=== PATIENT | male | born 1960 | race Caucasian/White ===

== ENCOUNTER 2017-11-16 17:55 | Inpatient (IN) ==
[2017-11-16] MEDS ORDERED: Naloxone 0.4 MG/ML INJ IVP PRN (22:31)
--- NOTE | 2017-11-16 22:39 | Internal Med History&Physical ---
Date of Encounter: 11/17/17 Time of Encounter: 22:37 Assessment and Plan (1) Acute exacerbation of chronic obstructive airways disease Current visit: Yes Status: Inactive Dyspnea due to an acute exacerbation of COPD. Patient is a history of COPD and is on 2 L nasal cannula home. As of today's visit he is requiring 3 L nasal cannula to maintain SPO2 greater than 92%. - Levaquin 500 mg IV piggyback daily - CBCD, CMP in AM - Tylenol 650 mg PO q 4-6 hr PRN pain or fever - Place patient on Xopenex -Prednisone 40 mg by mouth daily - Heparin 5000 U SQ BID -Send respiratory infection panel -Respiratory support per nasal cannula titrated to maintain greater than 92% (2) Paroxysmal atrial flutter Current visit: Yes Status: Inactive Presents today with paradoxical atrial flutter. Reports no prior history. I believe this is secondary to excessive bronchodilator use due to acute exacerbation of COPD. Upon my initial assessment the patient was atrial flutter with a rate in the 140s however he self converted to sinus rhythm rate of 90s. Continue to monitor (3) DVT prophylaxis Current visit: Yes Status: Acute Heprin 5000 units SC BID Internal Medicine - H&P: HPI Chief complaint: DYSPNEA Admitted From: Home Plans for Post Hospital Care: Home History of present illness: Mr. Price is a 57 year old male with a PMH of COPD presents today with dyspnea which began several weeks ago. At that time he had a CT scan that showed a 16 [id number] cavitary lesion in the left apex. His primary care provider diagnosed with bronchitis and sent home with a dose of steroids and Levaquin. He reports he has been taking the Levaquin since discharge and is not getting any better. He reports fever, chills, night sweats, aches, dyspnea and a nonproductive cough, palpitations and tachycardia. He denies any hemoptysis, or unilateral extremity swelling/pain. He has been using 2 L of oxygen at home, and reports having 2 increase the use of his bronchodilators due to shortness of breath. He has a half pack-a-day smoker and continues to smoke. Past Med Surg Social Fam HX - Past Medical History Medical history: COPD Psychiatric history: no psych history - Social History Smoking Status: Current every day smoker Smokeless Tobacco Status: No Alcohol use: rarely Drug use: none - Family History Mother Family Member Ethnicity: Non- Living Status: Age at : 79 Cause of : RI Hx Family Cardiac Disorders: Yes (CHF) Hx Family Respiratory Disorders: Yes (Emphysema) Father Family Member Ethnicity: Non- Living Status: Age at : 58 Cause of : Lung cancer Hx Family Cancer: Yes (Lung cancer with mets) - Additional Family History Additional family history: noncontributory Internal Medicine - H&P: Meds Albuterol Neb [AccuNeb] 3 ml IH Q4-6H PRN 11/16/17 [History] Albuterol Sulfate [Ventolin Hfa] 18 gm IH Q4-6H PRN 11/16/17 [History] Budesonide/Formoterol 160/4.5 [Symbicort 160/4.5] 2 puff IH BID 11/16/17 [ History] Multivit-Min/FA/Lycopen/Lutein [Adults 50+ Multivitamin Tablet] 1 each PO DAILY 11/17/17 [History] Tiotropium Br/Olodaterol HCl [Stiolto Respimat Inhal [place]] 2 puff IH DAILY [History] levoFLOXacin [Levofloxacin] 750 mg PO DAILY 11/17/17 [History] predniSONE [PredniSONE] 10 mg PO TIDWM 11/17/17 [History] 3 Allergy/AdvReac Type Severity Reaction Status Date / Time No Known Allergies Allergy Verified 11/17/17 09:31 All Systems PM: A 10-system review of systems was performed and is negative for pertinent findings except as documented above in the HPI. - Constitutional Constitutional: chills, fatigue, fever(s), lethargy, malaise, night sweats, weakness - Cardiovascular Cardiovascular ROS IM: as per HPI, dyspnea, dyspnea on exertion, irregular heart rhythm, orthopnea, palpitations, no chest pain, no edema, no lightheadedness, no syncope - Respiratory Respiratory: as per HPI, no hemoptysis - Gastrointestinal Gastrointestinal: no abdominal pain, no diarrhea, no hematemesis, no hematochezia, no melena, no nausea, no vomiting - Musculoskeletal Musculoskeletal ROS IM: no numbness, no tingling - Integumentary Integumentary IM: no rash, no unusual bruising - Neurological Neurological ROS: no confusion, no convulsions, no focal weakness, no numbness, no tingling, no tremor(s) - Hematologic/Lymphatic Hematologic/Lymphatic: no easy bruising - Constitutional Vitals: Temp Pulse Resp BP Pulse Ox 98 F 105 20 127/92 95 11/16/17 22:15 11/16/17 22:15 11/16/17 22:15 11/16/17 22:15 11/16/17 22:15 General appearance: Present: cooperative, mild distress, A&O X 3, answers questions appropriately - Head Head exam: Present: atraumatic, normocephalic - Eye Eye exam: Present: PERRL, conjuntiva pink, sclera anicteric Pupils: Present: PERRL - Neck Neck exam general surgery: Present: supple, trachea midline. Absent: lymphadenopathy - Respiratory Respiratory exam: Present: prolonged expiratory phase (shallow breaths), wheezes , tachypnea. Absent: chest wall tenderness - Cardiovascular Cardiovascular exam: Present: irregular rhythm, tachycardia. Absent: diastolic murmur, gallop, rubs, systolic murmur - GI/Abdominal GI/Abdominal exam: Present: normal bowel sounds, soft, no peritoneal signs. Absent: distended, tenderness - Extremities Exam Extremities exam: Present: normal capillary refill, normal inspection, warm, radial pulses palpable and symmetrical. Absent: calf tenderness, cyanotic, pedal edema, tenderness - Neurological Exam Neurological exam: Present: CN II-XII intact, oriented X3, no focal deficits. Absent: pronater drift, facial droop, speech deficit - Skin Skin exam: Present: dry, intact Internal Med - H&P Results - Labs CBC & Chem 7: 11/17/17 03:03 11/17/17 03:03 - Diagnostic Studies CT scan - chest Status: image reviewed by me Additional comments: No CT evidence pulmonary embolism. Severe emphysema. Left upper lobe cavitary lesion measuring up to 2.1 x 1.3 cm, unchanged since 11/04/2017. Comparison with prior studies would be helpful if available. Otherwise as recommended on the prior study, short-term follow-up in 3 months should be performed. Chest x-ray Status: image reviewed by me Additional comments: Emphysema and other pulmonary changes typical of sequela from smoking ; correlate with clinical history. Otherwise unremarkable chest.
[2017-11-16] MEDS ORDERED: Acetaminophen 325 MG TABLET PO PRN (23:00)
[2017-11-16] MEDS ORDERED: Levofloxacin 500 MG/100 ML 500 MG/100 ML BAG IVPB SCH (23:00)
[2017-11-17] MEDS ORDERED: *HR* LORazepam 0.5 MG TABLET PO PRN (00:19)
[2017-11-17 03:37] LABS: Adenovirus Not Detected (Not Detect); Bordetella Pertussis Not Detected (Not Detect); Chlamydophila pneumoniae Not Detected (Not Detect); Coronavirus 229E Not Detected (Not Detect); Coronavirus HKU1 Not Detected (Not Detect); Coronavirus NL63 Not Detected (Not Detect); Coronavirus OC43 Not Detected (Not Detect); Human Metapneumovirus Not Detected (Not Detect); Human Rhinovirus/Enterovirus Not Detected (Not Detect); Influenza A Subtype 2009 H1 Not Detected (Not Detect); Influenza A Untypeable Not Detected (Not Detect); Influenza B Not Detected (Not Detect); Mycoplasma pneumoniae Not Detected (Not Detect); Parainfluenza Virus 1 Not Detected (Not Detect); Parainfluenza Virus 2 Not Detected (Not Detect); Parainfluenza Virus 3 Not Detected (Not Detect); Parainfluenza Virus 4 Not Detected (Not Detect); Respiratory Syncytial Virus Not Detected (Not Detect)
[2017-11-17 03:48] LABS: Hematocrit 44.2 % (37.5-50.1); Hemoglobin 15.7 g/dL (12.9-16.9); Immature Granulocytes % 0.8 % (0-4); Lymphocytes # 0.6 K/mcL (0.6-4.6); Lymphocytes % 16.6 %; Mean Corpuscular HGB Conc 35.5 g/dL (31.6-35.5); Mean Corpuscular Hemoglobin 30.6 pg (28.0-33.3); Mean Corpuscular Volume 86.2 fL (83.0-100.0); Mean Platelet Volume 9.8 fL (9.4-12.4); Monocytes # 0.6 K/mcL (0.0-1.3); Monocytes % 15.5 %; Neutrophils # 2.4 K/mcL (1.6-8.9); Platelet Count 230 K/mcL (140-400); Red Blood Count 5.13 M/mcL (4.19-5.50); Red Cell Distribution Width 12.7 % (11.5-14.5); Segmented Neutrophils % 67.1 %
[2017-11-17 04:07] LABS: BUN/Creatinine Ratio 24 (6-26); Blood Urea Nitrogen 24 mg/dL (6-20); Calcium 8.8 mg/dL (8.6-10.3); Carbon Dioxide 24 mEq/L (23-29); Chloride 102 mEq/L (98-107); Glucose 161 mg/dL (70-105); Osmolality,Calculated 286 (280-300); Potassium 4.5 mEq/L (3.5-5.1); Sodium 134 mEq/L (136-145); eGFR For African Americans > 60 (> 60); eGFR For Non-African Americans > 60 (> 60)
[2017-11-17] MEDS: Levalbuterol Neb 1.25 MG/3 ML IH SCH ×4 (04:40→23:07)
[2017-11-17] MEDS: *HR* Heparin 5,000 UNIT/ML VIAL SQ SCH ×2 (07:12→20:06)
[2017-11-17] MEDS: predniSONE 20 MG TABLET PO SCH (09:10)
[2017-11-17] MEDS: Aspirin 81 MG TAB.CHEW PO SCH (09:10)
--- NOTE | 2017-11-17 11:14 | Internal Med Progress Note ---
Date of Encounter: 11/17/17 Time of Encounter: 11:11 - Assessment and plan (1) Sepsis Current Visit: Yes Status: Acute Assessment and plan: Acute on chronic hypoxic respiratory failure from acute COPD exacerbation due to Sepsis secondary to influenza A and pneumonia with left upper lobe cavitary lesion of the lung, consider possible anaerobe infection Stop Levaquin and start Unasyn Start Tamiflu, the patient developed symptoms 5 days ago but was getting better with Levaquin, symptoms got worse over the past 2 days, unclear of the timing of these combined infections Prednisone Xopenex, oxygen therapy, uses 2 L at home Qualifiers: Sepsis type: sepsis due to unspecified organism Qualified Code(s): A41.9 - Sepsis, unspecified organism (2) Influenza A Current Visit: Yes Status: Acute Assessment and plan: The patient deferred to start Tamiflu, the option of not starting this medication was discussed as the patient's symptoms possibly started either 2 or 5 days ago (3) Cavitary lesion of lung Current Visit: Yes Status: Acute Assessment and plan: CT scan of the chest showed:evere emphysema. Left upper lobe cavitary lesion measuring up to 2.1 x 1.3 cm, unchanged since 11/04/2017. Comparison with prior studies would be helpful if available. Needs to follow up with pulmonary service within the next 4-6 week to assess resolution of the cavitary lesion, less likely neoplastic or from tuberculosis (4) Tobacco abuse Current Visit: Yes Status: Acute (5) Leukopenia Current Visit: Yes Status: Acute Qualifiers: Neutropenia type: unspecified Qualified Code(s): D70.9 - Neutropenia, unspecified (6) Hyponatremia Current Visit: Yes Status: Acute (7) Atrial flutter Current Visit: Yes Status: Acute Assessment and plan: Likely developed by sepsis and breathing treatments The patient was given Cardizem but is now in sinus rhythm, tachycardic at times Qualifiers: Atrial flutter type: unspecified Qualified Code(s): I48.92 - Unspecified atrial flutter - Subjective Interval history: Very sweaty, short of breath, very tremulous, denies any chest pain, no abdominal pain or dysuria. No fevers overnight - Constitutional Vitals: Temp Pulse Resp BP Pulse Ox 98.1 F 90 16 124/80 97 11/17/17 10:57 11/17/17 10:57 11/17/17 10:57 11/17/17 10:57 11/17/17 10:57 General appearance: Present: cooperative, mild distress, A&O X 3, answers questions appropriately - Head Head exam: Present: atraumatic, normocephalic - Eye Eye exam: Present: PERRL, conjuntiva pink, sclera anicteric Pupils: Present: PERRL - Neck Neck exam general surgery: Present: supple, trachea midline. Absent: lymphadenopathy - Respiratory Respiratory exam: Present: decreased breath sounds, CTAB, wheezes. Absent: accessory muscle use, rales, rhonchi Additional comments: Minimal wheezing at bases - Cardiovascular Cardiovascular exam: Present: RRR, +S1, +S2. Absent: diastolic murmur, gallop, rubs, systolic murmur - GI/Abdominal GI/Abdominal exam: Present: normal bowel sounds, soft, no peritoneal signs. Absent: distended, tenderness - Extremities Exam Extremities exam: Present: warm, radial pulses palpable and symmetrical. Absent : calf tenderness, cyanotic, pedal edema - Neurological Exam Neurological exam: Present: CN II-XII intact, oriented X3, no focal deficits. Absent: pronater drift, facial droop, speech deficit Additional comments: Essential tremors - Skin Skin exam: Present: dry, intact Internal Medicine: Result - Labs CBC & Chem 7: 11/17/17 03:03 11/17/17 03:03 Labs: Short CBC 11/17/17 Range/Units 03:03 WBC 3.6 L (4.3-11.1) K/mcL Hgb 15.7 (12.9-16.9) g/dL Hct 44.2 (37.5-50.1) % Plt Count 230 (140-400) K/mcL Neutrophils # 2.4 (1.6-8.9) K/mcL BMP 11/17/17 03:03 Sodium 134 L Potassium 4.5 Chloride 102 Carbon Dioxide 24 BUN 24 H Creatinine 1.00 Glucose 161 H Calcium 8.8 Consult Discharge Plan - Plan Referrals: Hung Londono MD [Primary Care Provider] -
[2017-11-17] MEDS: Ampicillin/Sulbactam 1,500 MG in 0.9 % Sodium Chloride Mini Bag 100 ML IVPB SCH ×3 (12:41→20:05)
[2017-11-17] MEDS: Ipratropium Neb 0.5 MG NEBULIZER IH SCH (23:07)
[2017-11-18] MEDS: Ampicillin/Sulbactam 1,500 MG in 0.9 % Sodium Chloride Mini Bag 100 ML IVPB SCH ×4 (00:54→17:48)
[2017-11-18] MEDS: Ipratropium Neb 0.5 MG NEBULIZER IH SCH ×4 (03:52→22:56)
[2017-11-18] MEDS: Levalbuterol Neb 1.25 MG/3 ML IH SCH ×4 (03:52→22:56)
[2017-11-18] MEDS: *HR* Heparin 5,000 UNIT/ML VIAL SQ SCH (06:20)
[2017-11-18 06:30] LABS: Hematocrit 40.9 % (37.5-50.1); Mean Corpuscular Hemoglobin 29.4 pg (28.0-33.3); Mean Corpuscular Volume 86.7 fL (83.0-100.0); Platelet Count 229 K/mcL (140-400); Red Blood Count 4.72 M/mcL (4.19-5.50); Red Cell Distribution Width 12.7 % (11.5-14.5)
[2017-11-18 06:34] LABS: Hemoglobin 13.9 g/dL (12.9-16.9)
[2017-11-18 06:35] LABS: BUN/Creatinine Ratio 27 (6-26); Blood Urea Nitrogen 23 mg/dL (6-20); Calcium 8.3 mg/dL (8.6-10.3); Carbon Dioxide 29 mEq/L (23-29); Chloride 103 mEq/L (98-107); Glucose 99 mg/dL (70-105); Osmolality,Calculated 286 (280-300); Potassium 3.8 mEq/L (3.5-5.1); Sodium 136 mEq/L (136-145); eGFR For African Americans > 60 (> 60); eGFR For Non-African Americans > 60 (> 60)
[2017-11-18] MEDS: Aspirin 81 MG TAB.CHEW PO SCH (09:23)
[2017-11-18] MEDS: predniSONE 20 MG TABLET PO SCH (09:23)
--- NOTE | 2017-11-18 10:45 | Internal Med Progress Note ---
<Ifeanyi Penny - Last Filed: 11/18/17 13:24> Date of Encounter: 11/18/17 Time of Encounter: 10:43 - Assessment and plan (1) Sepsis Current Visit: Yes Status: Acute Assessment and plan: Acute on chronic hypoxic respiratory failure from acute COPD exacerbation due to Sepsis secondary to influenza A and pneumonia with left upper lobe cavitary lesion of the lung, consider possible anaerobe infection. Concerns for TB. Influenza A positive. - Unasyn day 2 - ct tamiflu - bronchoscope ordered, pulm consult - ct prednisone - continue Xopenex, oxygen therapy, uses 2 L at home Qualifiers: Sepsis type: sepsis due to unspecified organism Qualified Code(s): A41.9 - Sepsis, unspecified organism (2) Influenza A Current Visit: Yes Status: Acute Assessment and plan: The patient deferred to start Tamiflu, the option of not starting this medication was discussed as the patient's symptoms possibly started either 2 or 5 days ago (3) Cavitary lesion of lung Current Visit: Yes Status: Acute Assessment and plan: CT scan of the chest showed:severe emphysema. Left upper lobe cavitary lesion measuring up to 2.1 x 1.3 cm, unchanged since 11/04/2017. Comparison with prior studies would be helpful if available. Needs to follow up with pulmonary service within the next 4-6 week to assess resolution of the cavitary lesion, less likely neoplastic or from tuberculosis (4) Tobacco abuse Current Visit: Yes Status: Acute Assessment and plan: current everyday smoker. educated patient on smoking cessation (5) Leukopenia Current Visit: Yes Status: Acute Qualifiers: Neutropenia type: unspecified Qualified Code(s): D70.9 - Neutropenia, unspecified (6) Hyponatremia Current Visit: Yes Status: Acute (7) Atrial flutter Current Visit: Yes Status: Acute Assessment and plan: Likely developed by sepsis and breathing treatments The patient was given Cardizem but is now in sinus rhythm, tachycardic at times Qualifiers: Atrial flutter type: unspecified Qualified Code(s): I48.92 - Unspecified atrial flutter - Subjective Interval history: Mr Price is a 57 yo M w/ PMHx of COPD, current smoker, recently treated by her PCP for bronchitis with levaquin presented to ED with worsening SOB. Patient reports that he still has difficulty breathing but is improving. patient denies fever, chills, n, v, cp. - Constitutional Vitals: Temp Pulse Resp BP Pulse Ox 97.7 F 74 16 150/98 96 11/18/17 07:19 11/18/17 07:19 11/18/17 10:15 11/18/17 07:19 11/18/17 10:15 General appearance: Present: cooperative, mild distress, A&O X 3, answers questions appropriately - Respiratory Respiratory exam: Present: prolonged expiratory phase, respiratory distress, wheezes - Cardiovascular Cardiovascular exam: Present: RRR, +S1, +S2. Absent: diastolic murmur, gallop, rubs, systolic murmur - GI/Abdominal GI/Abdominal exam: Present: normal bowel sounds, soft, no peritoneal signs. Absent: distended, tenderness - Psychiatric Psychiatric exam: Present: normal affect, normal mood Internal Medicine: Result - Labs CBC & Chem 7: 11/18/17 05:17 11/18/17 05:17 Labs: Short CBC 11/18/17 Range/Units 05:17 WBC 4.8 (4.3-11.1) K/mcL Hgb 13.9 D (12.9-16.9) g/dL Hct 40.9 (37.5-50.1) % Plt Count 229 (140-400) K/mcL BMP 11/18/17 05:17 Sodium 136 Potassium 3.8 Chloride 103 Carbon Dioxide 29 BUN 23 H Creatinine 0.86 Glucose 99 Calcium 8.3 L - Impressions Impressions Echocardiogram 11/17/17 13:47 Impressions: LVEF 60%. Mild left ventricular diastolic dysfunction. Atypical septal motion of unclear etiology. Normal right ventricular structure and function. Mild tricuspid regurgitation. No pulmonary hypertension. Left Ventricular Wall Motion: Rest Echo Findings All wall segments showed normal motion. Findings: Study Quality * Technically adequate exam. ECG Findings * Normal sinus rhythm. Left Ventricle * LVEF 60%. * Normal LV chamber size, wall thickness and function. * Mild left ventricular diastolic dysfunction. * Atypical septal motion of unclear etiology. Right Ventricle * Normal right ventricular structure and function. Left Atrium * Normal left atrial size. Right Atrium * Normal right atrial size. Aortic Valve * No aortic regurgitation. * Aortic valve not well visualized. * No aortic stenosis. Mitral Valve * No mitral regurgitation. * Normal mitral valve structure. * No mitral stenosis. Tricuspid Valve * Normal tricuspid valve structure. * Mild tricuspid regurgitation. * Estimated RA pressure is 3 mmHg. * Estimated RVSP is 32 mmHg. * No pulmonary hypertension. Pulmonic Valve * Pulmonic valve is not well visualized. * No pulmonic stenosis. * No pulmonic regurgitation. Pulmonary Artery * Pulmonary artery not well visualized. Aorta * Normally sized aortic root. * Ascending aorta is not well visualized. Pericardium * There is no pericardial effusion present. Interatrial Septum * No evidence of PFO by color Doppler. IVC * Normal IVC dimensions and inspiratory collapse. Consult Discharge Plan - Plan Referrals: Hung Londono MD [Primary Care Provider] - <Moy Dunn - Last Filed: 11/18/17 18:39> Date of Encounter: 11/18/17 - Assessment and plan (1) Acute respiratory failure with hypoxia Current Visit: Yes Status: Acute (2) Influenza A Current Visit: Yes Status: Acute (3) Sepsis Current Visit: Yes Status: Acute Qualifiers: Sepsis type: sepsis due to unspecified organism Qualified Code(s): A41.9 - Sepsis, unspecified organism (4) Atrial fibrillation Current Visit: Yes Status: Acute Assessment and plan: Starting anticoagulation and metoprolol. Qualifiers: Atrial fibrillation type: paroxysmal Qualified Code(s): I48.0 - Paroxysmal atrial fibrillation (5) Tobacco abuse Current Visit: Yes Status: Acute (6) Cavitary lesion of lung Current Visit: Yes Status: Acute (7) Hyponatremia Current Visit: Yes Status: Acute - Constitutional Vitals: Temp Pulse Resp BP Pulse Ox 97.8 F 152 16 137/111 98 11/18/17 14:57 11/18/17 14:57 11/18/17 16:27 11/18/17 14:57 11/18/17 16:27 Internal Medicine: Result - Labs CBC & Chem 7: 11/18/17 05:17 11/18/17 05:17 Labs: Short CBC 11/18/17 Range/Units 05:17 WBC 4.8 (4.3-11.1) K/mcL Hgb 13.9 D (12.9-16.9) g/dL Hct 40.9 (37.5-50.1) % Plt Count 229 (140-400) K/mcL BMP 11/18/17 05:17 Sodium 136 Potassium 3.8 Chloride 103 Carbon Dioxide 29 BUN 23 H Creatinine 0.86 Glucose 99 Calcium 8.3 L - Impressions Impressions Echocardiogram 11/17/17 13:47 Impressions: LVEF 60%. Mild left ventricular diastolic dysfunction. Atypical septal motion of unclear etiology. Normal right ventricular structure and function. Mild tricuspid regurgitation. No pulmonary hypertension. Left Ventricular Wall Motion: Rest Echo Findings All wall segments showed normal motion. Findings: Study Quality * Technically adequate exam. ECG Findings * Normal sinus rhythm. Left Ventricle * LVEF 60%. * Normal LV chamber size, wall thickness and function. * Mild left ventricular diastolic dysfunction. * Atypical septal motion of unclear etiology. Right Ventricle * Normal right ventricular structure and function. Left Atrium * Normal left atrial size. Right Atrium * Normal right atrial size. Aortic Valve * No aortic regurgitation. * Aortic valve not well visualized. * No aortic stenosis. Mitral Valve * No mitral regurgitation. * Normal mitral valve structure. * No mitral stenosis. Tricuspid Valve * Normal tricuspid valve structure. * Mild tricuspid regurgitation. * Estimated RA pressure is 3 mmHg. * Estimated RVSP is 32 mmHg. * No pulmonary hypertension. Pulmonic Valve * Pulmonic valve is not well visualized. * No pulmonic stenosis. * No pulmonic regurgitation. Pulmonary Artery * Pulmonary artery not well visualized. Aorta * Normally sized aortic root. * Ascending aorta is not well visualized. Pericardium * There is no pericardial effusion present. Interatrial Septum * No evidence of PFO by color Doppler. IVC * Normal IVC dimensions and inspiratory collapse. - Attending Attestation I examined this patient and my medical decision-making was reviewed with the Resident Physician on 11/18/17. I agree with the documented findings, disposition and treatment plan as described except to the extent set forth below. Mr Price is currently admitted for acute influenza and a fib. He remains moderate to high risk due to potential for worsening clinical status. Mr Price is feeling somewhat better today. He remains dyspneic and weak. His sister is at bedside and updated. He has had 2 episodes of rapid a fib today and spontaneously converted to NSR. He does not really feel it. Exam Alert. Comfortable Mucus membranes dry Heart reg Lungs with scattered rhonchi Abd soft I/P 1. Parox a fib 2. COPD 3. Influenza Further diagnoses and plan as above.
[2017-11-18] MEDS: *HR* Enoxaparin 80 MG/0.8 ML SYRINGE SQ SCH (17:49)
[2017-11-18] MEDS: Budesonide/Formoterol 160/4.5 MDI IH SCH (23:01)
[2017-11-19] MEDS: Ampicillin/Sulbactam 1,500 MG in 0.9 % Sodium Chloride Mini Bag 100 ML IVPB SCH ×4 (00:31→18:24)
[2017-11-19] MEDS: Ipratropium Neb 0.5 MG NEBULIZER IH SCH ×4 (04:27→22:50)
[2017-11-19] MEDS: Levalbuterol Neb 1.25 MG/3 ML IH SCH ×4 (04:27→22:50)
[2017-11-19 05:38] LABS: Basophils % 0.2 %; Hemoglobin 14.1 g/dL (12.9-16.9); Immature Granulocytes % 0.4 % (0-4); Lymphocytes # 2.1 K/mcL (0.6-4.6); Lymphocytes % 41.5 %; Mean Corpuscular HGB Conc 34.4 g/dL (31.6-35.5); Mean Corpuscular Volume 87.2 fL (83.0-100.0); Mean Platelet Volume 10.8 fL (9.4-12.4); Monocytes # 0.6 K/mcL (0.0-1.3); Monocytes % 12.6 %; Neutrophils # 2.3 K/mcL (1.6-8.9); Platelet Count 179 K/mcL (140-400); Red Cell Distribution Width 12.6 % (11.5-14.5); Segmented Neutrophils % 45.3 %
[2017-11-19 05:51] LABS: BUN/Creatinine Ratio 25 (6-26); Blood Urea Nitrogen 20 mg/dL (6-20); Calcium 8.4 mg/dL (8.6-10.3); Carbon Dioxide 31 mEq/L (23-29); Chloride 102 mEq/L (98-107); Glucose 91 mg/dL (70-105); Osmolality,Calculated 282 (280-300); Sodium 135 mEq/L (136-145); eGFR For African Americans > 60 (> 60); eGFR For Non-African Americans > 60 (> 60)
[2017-11-19] MEDS: *HR* Enoxaparin 80 MG/0.8 ML SYRINGE SQ SCH (05:56)
[2017-11-19 06:04] LABS: Platelet Estimate Normal (Normal); Reactive Lymphocytes Present (Not Present); Toxic Granulation Present (Not Present); Toxic Vacuolation Present (Not Present)
[2017-11-19 06:05] LABS: Acanthocytes 1+ (Not Present)
[2017-11-19] MEDS: predniSONE 20 MG TABLET PO SCH (09:19)
[2017-11-19] MEDS: Aspirin 81 MG TAB.CHEW PO SCH (09:19)
[2017-11-19] MEDS: Budesonide/Formoterol 160/4.5 MDI IH SCH ×2 (10:11→22:49)
--- NOTE | 2017-11-19 10:37 | Internal Med Progress Note ---
Date of Encounter: 11/19/17 Time of Encounter: 10:35 - Assessment and plan (1) Sepsis Current Visit: Yes Status: Acute Assessment and plan: Acute on chronic hypoxic respiratory failure from acute COPD exacerbation due to Sepsis secondary to influenza A and pneumonia with left upper lobe cavitary lesion of the lung, consider possible anaerobe infection. Concerns for TB. Influenza A positive. - Unasyn day 2 - ct tamiflu - bronchoscope ordered, pulm consult - ct prednisone - continue Xopenex, oxygen therapy, uses 2 L at home Qualifiers: Sepsis type: sepsis due to unspecified organism Qualified Code(s): A41.9 - Sepsis, unspecified organism (2) Influenza A Current Visit: Yes Status: Acute (3) Cavitary lesion of lung Current Visit: Yes Status: Acute (4) Tobacco abuse Current Visit: Yes Status: Acute (5) Leukopenia Current Visit: Yes Status: Acute Qualifiers: Neutropenia type: unspecified Qualified Code(s): D70.9 - Neutropenia, unspecified (6) Hyponatremia Current Visit: Yes Status: Acute (7) Atrial flutter Current Visit: Yes Status: Acute Qualifiers: Atrial flutter type: unspecified Qualified Code(s): I48.92 - Unspecified atrial flutter - Subjective Interval history: Mr Price is a 57 yo M w/ PMHx of COPD, current smoker, recently treated by her PCP for bronchitis with levaquin presented to ED with worsening SOB. Patient reports that his breathing has improved greatly since yesterday. patient denies fever, chills, n, v, cp. - Constitutional Vitals: Temp Pulse Resp BP Pulse Ox 97.7 F 62 18 127/76 95 11/19/17 07:35 11/19/17 07:35 11/19/17 10:12 11/19/17 07:35 11/19/17 10:12 General appearance: Present: cooperative, mild distress, A&O X 3, answers questions appropriately - Respiratory Respiratory exam: Present: prolonged expiratory phase, wheezes (expiratory, improved). Absent: decreased breath sounds, CTAB, rales, respiratory distress, stridor - Cardiovascular Cardiovascular exam: Present: RRR - GI/Abdominal GI/Abdominal exam: Present: normal bowel sounds, soft, no peritoneal signs. Absent: distended, tenderness Internal Medicine: Result - Labs CBC & Chem 7: 11/19/17 05:03 11/19/17 05:03 Labs: Short CBC 11/19/17 Range/Units 05:03 WBC 5.0 (4.3-11.1) K/mcL Hgb 14.1 (12.9-16.9) g/dL Hct 41.0 (37.5-50.1) % Plt Count 179 (140-400) K/mcL Neutrophils # 2.3 (1.6-8.9) K/mcL BMP 11/19/17 05:03 Sodium 135 L Potassium 4.0 Chloride 102 Carbon Dioxide 31 H BUN 20 Creatinine 0.80 Glucose 91 Calcium 8.4 L Consult Discharge Plan - Plan Referrals: Hung Londono MD [Primary Care Provider] -
--- NOTE | 2017-11-19 10:42 | Discharge Summary ---
Date of Encounter: 11/19/17 Time of Encounter: 10:40 - Discharge Diagnosis (1) Sepsis Priority: Secondary Status: Acute Qualifiers: Sepsis type: sepsis due to unspecified organism Qualified Code(s): A41.9 - Sepsis, unspecified organism (2) Influenza A Priority: Primary Status: Acute (3) Cavitary lesion of lung Priority: Secondary Status: Acute (4) Tobacco abuse Priority: Secondary Status: Acute (5) Leukopenia Priority: Secondary Status: Acute Qualifiers: Neutropenia type: unspecified Qualified Code(s): D70.9 - Neutropenia, unspecified (6) Hyponatremia Priority: Secondary Status: Acute (7) Atrial flutter Priority: Secondary Status: Acute Qualifiers: Atrial flutter type: unspecified Qualified Code(s): I48.92 - Unspecified atrial flutter - Discharge Medications Home Medications: Albuterol Neb [AccuNeb] 3 ml IH Q4-6H PRN 11/16/17 [History] Albuterol Sulfate [Ventolin Hfa] 18 gm IH Q4-6H PRN 11/16/17 [History] Budesonide/Formoterol 160/4.5 [Symbicort 160/4.5] 2 puff IH BID 11/16/17 [ History] Multivit-Min/FA/Lycopen/Lutein [Adults 50+ Multivitamin Tablet] 1 each PO DAILY 11/17/17 [History] Tiotropium Br/Olodaterol HCl [Stiolto Respimat Inhal [place]] 2 puff IH DAILY [History] levoFLOXacin [Levofloxacin] 750 mg PO DAILY 11/17/17 [History] predniSONE [PredniSONE] 10 mg PO TIDWM 11/17/17 [History] Allergies/Adverse Reactions: 3 Allergy/AdvReac Type Severity Reaction Status Date / Time No Known Allergies Allergy Verified 11/17/17 09:31 Procedures/tests Complete & Pending: Procedures Performed prior 72 hours Category Date Time Status EV echocardiogram Routine Y 11/17/17 13:47 Completed Date of admission: 11/16/17 22:31 Primary care physician: Hung Londono MD Consults: 11/18/17 10:48 Consult to Pulmonology [CONS] Routine Consulting Provider: [facility] [place] Reason for Consult: newly found cavitory lesion in Left upper lobe Call Completed: Yes 11/19/17 10:33 Consult to Cardiology [CONS] Routine Consulting Provider: Cardiology [place] Comment: Reason for Consult: new afib Call Completed: Yes - Discharge Instructions Follow Up With: Hung Londono MD [Primary Care Provider] - Hospital course: Mr. Price is a 57 year old male - Time Spent with Patient Total time spent providing and/or coordinating discharge services: - Constitutional Vitals: Temp Pulse Resp BP Pulse Ox 97.7 F 62 18 127/76 95 11/19/17 07:35 11/19/17 07:35 11/19/17 10:12 11/19/17 07:35 11/19/17 10:12 General appearance: Present: cooperative, mild distress, A&O X 3, answers questions appropriately
--- NOTE | 2017-11-19 11:00 | Internal Med Progress Note ---
<Ifeanyi Penny - Last Filed: 11/19/17 13:37> Date of Encounter: 11/19/17 Time of Encounter: 10:56 - Assessment and plan (1) Sepsis Current Visit: Yes Status: Acute Assessment and plan: Acute on chronic hypoxic respiratory failure from acute COPD exacerbation due to Sepsis secondary to influenza A and pneumonia with left upper lobe cavitary lesion of the lung, consider possible anaerobe infection. Influenza A positive. Pulm on board - TB workup - pending - Unasyn day 3 - ct tamiflu - Patient was walked, HR, BP, and sat O2 dropped. - d/C prednisone per [facility]ad[facility]al[facility] - continue Xopenex, oxygen therapy, uses 2 L at home Qualifiers: Sepsis type: sepsis due to unspecified organism Qualified Code(s): A41.9 - Sepsis, unspecified organism (2) Influenza A Current Visit: Yes Status: Acute Assessment and plan: The patient deferred to start Tamiflu, the option of not starting this medication was discussed as the patient's symptoms possibly started either 2 or 5 days ago (3) Cavitary lesion of lung Current Visit: Yes Status: Suspected Assessment and plan: CT scan of the chest showed:severe emphysema. Left upper lobe cavitary lesion measuring up to 2.1 x 1.3 cm, unchanged since 11/04/2017. Comparison with prior studies would be helpful if available. Needs to follow up with pulmonary service within the next 4-6 week to assess resolution of the cavitary lesion, less likely neoplastic or from tuberculosis - F/U CT scan (4) Tobacco abuse Current Visit: Yes Status: Chronic Assessment and plan: current everyday smoker. educated patient on smoking cessation (5) Leukopenia Current Visit: Yes Status: Acute Assessment and plan: has resolved. Qualifiers: Neutropenia type: unspecified Qualified Code(s): D70.9 - Neutropenia, unspecified (6) Hyponatremia Current Visit: Yes Status: Acute Assessment and plan: currently stable (7) Atrial flutter Current Visit: Yes Status: Acute Assessment and plan: Likely developed by sepsis and breathing treatments. new afib. - cards consulted; per their recommendations patient was started on Lovenox and Cardizem Qualifiers: Atrial flutter type: unspecified Qualified Code(s): I48.92 - Unspecified atrial flutter - Subjective Interval history: Mr Price is a 57 yo M w/ PMHx of COPD, current smoker, recently treated by her PCP for bronchitis with levaquin presented to ED with worsening SOB. Also found to have afib. Patient reports that his breathing has drastically improved.. patient denies fever, chills, n, v, cp. - Constitutional Vitals: Temp Pulse Resp BP Pulse Ox 97.7 F 62 18 127/76 95 11/19/17 07:35 11/19/17 07:35 11/19/17 10:12 11/19/17 07:35 11/19/17 10:12 General appearance: Present: cooperative, mild distress, A&O X 3, answers questions appropriately - Respiratory Respiratory exam: Present: CTAB. Absent: accessory muscle use, rales, rhonchi, wheezes - Cardiovascular Cardiovascular exam: Present: RRR, +S1, +S2. Absent: diastolic murmur, gallop, rubs, systolic murmur - GI/Abdominal GI/Abdominal exam: Present: normal bowel sounds, soft, no peritoneal signs. Absent: distended, tenderness Internal Medicine: Result - Labs CBC & Chem 7: 11/19/17 05:03 11/19/17 05:03 Labs: Short CBC 11/19/17 Range/Units 05:03 WBC 5.0 (4.3-11.1) K/mcL Hgb 14.1 (12.9-16.9) g/dL Hct 41.0 (37.5-50.1) % Plt Count 179 (140-400) K/mcL Neutrophils # 2.3 (1.6-8.9) K/mcL BMP 11/19/17 05:03 Sodium 135 L Potassium 4.0 Chloride 102 Carbon Dioxide 31 H BUN 20 Creatinine 0.80 Glucose 91 Calcium 8.4 L Consult Discharge Plan - Plan Referrals: Hung Londono MD [Primary Care Provider] - <Moy Dunn - Last Filed: 11/19/17 18:38> Date of Encounter: 11/19/17 - Assessment and plan (1) Acute respiratory failure with hypoxia Current Visit: Yes Status: Acute (2) Influenza A Current Visit: Yes Status: Acute (3) Sepsis Current Visit: Yes Status: Resolved Qualifiers: Sepsis type: sepsis due to unspecified organism Qualified Code(s): A41.9 - Sepsis, unspecified organism (4) Atrial fibrillation Current Visit: Yes Status: Acute Qualifiers: Atrial fibrillation type: paroxysmal Qualified Code(s): I48.0 - Paroxysmal atrial fibrillation (5) Tobacco abuse Current Visit: Yes Status: Chronic (6) Cavitary lesion of lung Current Visit: Yes Status: Suspected (7) Hyponatremia Current Visit: Yes Status: Resolved - Constitutional Vitals: Temp Pulse Resp BP Pulse Ox 98.0 F 64 18 139/96 96 11/19/17 15:34 11/19/17 15:34 11/19/17 15:49 11/19/17 15:34 11/19/17 15:49 Internal Medicine: Result - Labs CBC & Chem 7: 11/19/17 05:03 11/19/17 05:03 Labs: Short CBC 11/19/17 Range/Units 05:03 WBC 5.0 (4.3-11.1) K/mcL Hgb 14.1 (12.9-16.9) g/dL Hct 41.0 (37.5-50.1) % Plt Count 179 (140-400) K/mcL Neutrophils # 2.3 (1.6-8.9) K/mcL BMP 11/19/17 05:03 Sodium 135 L Potassium 4.0 Chloride 102 Carbon Dioxide 31 H BUN 20 Creatinine 0.80 Glucose 91 Calcium 8.4 L - Impressions Impressions Chest CT 11/19/17 11:05 IMPRESSION: 1. No significant change in appearance of a 2.0 cm cavitary lesion within the left upper lobe. This is most likely postinfectious or inflammatory in etiology, though a malignant cavitary lesion cannot be excluded. As stated on the initial report of 11/04/2017, chest CT follow-up in 3 months is recommended. 2. Stable emphysema, without additional acute intrapulmonary findings. D/ / 11/19/2017 14:41:01 Juan Jose Quiroz MD / brando Interpreting Provider: Juan Jose Quiroz MD - Attending Attestation I examined this patient and my medical decision-making was reviewed with the Resident Physician on 11/19/17. I agree with the documented findings, disposition and treatment plan as described except to the extent set forth below. Mr Price is currently admitted for acute sepsis and influenza A. He remains moderate to high risk due to potential for worsening clinical status. Mr Price feels somewhat better. He is still very weak. No fever or chills. Has been up a little today. Exam Alert. Comfortable Mucus membranes dry Heart reg Better air movement. I/P 1. Sepsis 2. Influenza A Anticipate d/c tomorrow. Further diagnoses and plan as above.
--- NOTE | 2017-11-19 11:19 | Pulmonology Consult Note ---
Date of Encounter: 11/19/17 Time of Encounter: 09:45 Assessment and Plan (1) Acute and chronic respiratory failure with hypoxia Current Visit: Yes Status: Acute Patient is feeling better and he is using oxygen at home. Keep his weight around 90%. I expect slowly will improve with current treatment and hopefully quit smoking. (2) Influenza A Current Visit: Yes Status: Acute Patient has been appropriately treated and discussed with the primary team about lowering systemic steroid. (3) Cavitary lesion of lung Current Visit: Yes Status: Suspected I have reviewed CT chest and in my opinion this is most likely a emphysematous bullae and there is possibility of inflammation/infection and with the treatment I suspect this might improve. Discussed with primary team and agree with plan of care to follow-up as outpatient in about 6-[address] chest and if no improvement then patient will need a bronchoscopy. This is also explained to the patient and he agreed an understanding with the plan. Thank you very much for the consultation. (4) Tobacco abuse Current Visit: Yes Status: Chronic Patient was advised to quit smoking and offered treatment. History of Present Illness Consult date: 11/19/17 Requesting physician: Moy Dunn Reason for consult: COPD, pneumonia Chief complaint: Dyspnea History of present illness: This is a very pleasant 57-year-old male who is an established patient with COPD with our clinic, present to the hospital with dyspnea, however he is feeling much better at this time with the treatment. Patient has been having worsening of his dyspnea for several weeks. Patient had a CT chest which showed a cavitary lesion and pulmonary consulted. Patient is being treated with antibiotics and systemic steroids. Patient also had body aches with night sweats and he did have pneumonia as well as influenza vaccine, but he was diagnosed with flu and he is feeling better. Patient denies any hemoptysis and he is on home oxygen. Patient mostly had nonproductive cough and he was having palpitation. Patient continues smoke tobacco and he is interested to quit smoking. Patient denies any significant wheezing. He denies previous history of tuberculosis. Past Med Surg Social Fam HX - Past Medical History Medical history: COPD Psychiatric history: no psych history - Past Surgical History Surgical History: herniorrhaphy - Social History Smoking Status: Current every day smoker Packs per day: 0.5 Smokeless Tobacco Status: No Alcohol use: rarely Drug use: none - Family History Mother Family Member Ethnicity: Non- Living Status: Age at : 79 Cause of : [place] Hx Family Cardiac Disorders: Yes (CHF) Hx Family Respiratory Disorders: Yes (Emphysema) Father Family Member Ethnicity: Non- Living Status: Age at : 58 Cause of : Lung cancer Hx Family Cancer: Yes (Lung cancer with mets) Medications and Allergies Albuterol Neb [AccuNeb] 3 ml IH Q4-6H PRN 11/16/17 [History] Albuterol Sulfate [Ventolin Hfa] 18 gm IH Q4-6H PRN 11/16/17 [History] Budesonide/Formoterol 160/4.5 [Symbicort 160/4.5] 2 puff IH BID 11/16/17 [ History] Multivit-Min/FA/Lycopen/Lutein [Adults 50+ Multivitamin Tablet] 1 each PO DAILY 11/17/17 [History] Tiotropium Br/Olodaterol HCl [Stiolto Respimat Inhal [place]] 2 puff IH DAILY [History] levoFLOXacin [Levofloxacin] 750 mg PO DAILY 11/17/17 [History] predniSONE [PredniSONE] 10 mg PO TIDWM 11/17/17 [History] 3 Allergy/AdvReac Type Severity Reaction Status Date / Time No Known Allergies Allergy Verified 11/17/17 09:31 All Systems: A 10-system review of systems was performed and is negative for pertinent findings except as documented above in the HPI. Physical Examination Vital Signs: Vital Signs, Last 4 Hours Temp Pulse Resp BP Pulse Ox 11/19/17 10:12 18 95 11/19/17 07:35 97.7 F 62 14 127/76 100 General appearance: no acute distress Eyes: nonicteric ENT: oropharynx moist Neck: supple Effort: normal Inspection: hyperextended Auscultation: bilateral: diminished breath sounds Percussion: bilateral: not dull Cardiovascular: regular rate and rhythm Gastrointestinal: normoactive bowel sounds, non-distended Extremities: no cyanosis normal mental status, non-focal exam mood appropriate Results - Laboratory Findings CBC and BMP: 11/19/17 05:03 11/19/17 05:03 Abnormal lab findings: Abnormal lab results Reactive Lymphocytes Present (Not Present) A 11/19/17 05:03 Toxic Granulation Present (Not Present) A 11/19/17 05:03 Toxic Vacuolation Present (Not Present) A 11/19/17 05:03 Acanthocytes (Spur) 1+ (Not Present) A 11/19/17 05:03 Sodium 135 mEq/L (136-145) L 11/19/17 05:03 Carbon Dioxide 31 mEq/L (23-29) H 11/19/17 05:03 Calcium 8.4 mg/dL (8.6-10.3) L 11/19/17 05:03 Influenza A (H3) PCR DETECTED (Not Detect) A 11/17/17 02:00 - Diagnostic Findings CT scan - chest: report reviewed, image reviewed - Clinical Findings Intake & Output: Intake & Output 11/18/17 11/19/17 11/19/17 23:59 07:59 15:59 Intake Total 580 / 580 340 / 340 120 / 120 Output Total 300 / 300 800 / 800 Balance 280 / 280 -460 / -460 120 / 120 Weight 67.3 kg Consult Discharge Plan - Plan Referrals: Hung Londono MD [Primary Care Provider] -
[2017-11-19 15:20] LABS: A.galactomannan Ag Index 0.03
--- NOTE | 2017-11-19 16:47 | Cardiology Consult Note ---
Date of Encounter: 11/19/17 Time of Encounter: 16:41 Assessment and Plan (1) Sinus rhythm Current Visit: Yes Status: Acute Consultation for possible paroxysmal atrial fibrillation. Telemetry reviewed in great detail. Sinus rhytm with occasional artifact noted No atrial fibrillation/flutter observed. Structurally normal appearing heart on TTE, normal LV function. No indication for anticoagulation. Recommend aspirin 81 mg daily for primary prevention. Discussion w patient/family: The assessment and plan as outlined above was discussed with the patient and/or family members who expressed understanding and agreement. All questions were answered. Thank you for involving us in the care of your patient. Please call with any questions. History of Present Illness Consult date: 11/19/17 Requesting physician: Moy Dunn Consult reason: PAF Chief complaint: Dyspnea History of present illness: Mr. Price is a 57 year old male admitted with dyspnea. Patient seen and examined earlier today, prior to discharge. Longtime smoking history, COPD. CT scan - Emphysema, cavitary lesion described. Consulted regarding possible paroxysmal atrial fibrillation. No known history of lung disease. Past Med Surg Social Fam HX - Past Medical History Medical history: COPD Psychiatric history: no psych history - Past Surgical History Surgical History: herniorrhaphy - Social History Smoking Status: Current every day smoker Packs per day: 0.5 Smokeless Tobacco Status: No Alcohol use: rarely Drug use: none - Family History Mother Family Member Ethnicity: Non- Living Status: Age at : 79 Cause of : [place] Hx Family Cardiac Disorders: Yes (CHF) Hx Family Respiratory Disorders: Yes (Emphysema) Father Family Member Ethnicity: Non- Living Status: Age at : 58 Cause of : Lung cancer Hx Family Cancer: Yes (Lung cancer with mets) Medications and Allergies Albuterol Neb [AccuNeb] 3 ml IH Q4-6H PRN 11/16/17 [History] Albuterol Sulfate [Ventolin Hfa] 18 gm IH Q4-6H PRN 11/16/17 [History] Budesonide/Formoterol 160/4.5 [Symbicort 160/4.5] 2 puff IH BID 11/16/17 [ History] Multivit-Min/FA/Lycopen/Lutein [Adults 50+ Multivitamin Tablet] 1 each PO DAILY 11/17/17 [History] Tiotropium Br/Olodaterol HCl [Stiolto Respimat Inhal [place]] 2 puff IH DAILY [History] levoFLOXacin [Levofloxacin] 750 mg PO DAILY 11/17/17 [History] predniSONE [PredniSONE] 10 mg PO TIDWM 11/17/17 [History] 3 Allergy/AdvReac Type Severity Reaction Status Date / Time No Known Allergies Allergy Verified 11/17/17 09:31 All Systems Review: A 10-system review of systems was performed and is negative for pertinent findings except as documented above in the HPI. - Cardiovascular Cardiovascular: dyspnea at rest, dyspnea on exertion Physical Examination Vital Signs, Last 4 Hours Temp Pulse Resp BP Pulse Ox 11/19/17 15:49 18 96 11/19/17 15:34 98.0 F 64 14 139/96 97 General: Conversant, No Apparent Distress HEENT: Atraumatic, Normocephaly, Mucus Membranes Moist Neck: No JVD, Normal carotid pulses Cardiac: Reg Rate and Rhythm, Normal S1 and S2, No Murmur Lungs: Other (Shallow, mostly clear) Neuro: Alert and responsive, No focal deficits noted Abdomen: Soft, Non-Tender Skin: No rashes noted on visualized skin Musculoskeletal: No Chest Wall Tenderness Extremities: No Clubbing, No Cyanosis, No Edema Results 11/19/17 05:03 11/19/17 05:03 Lab Results 11/19/17 11/19/17 05:03 05:03 WBC 5.0 Hgb 14.1 Hct 41.0 Plt Count 179 Sodium 135 L Potassium 4.0 Chloride 102 Carbon Dioxide 31 H BUN 20 Creatinine 0.80 Glucose 91 Calcium 8.4 L - Imaging and Cardiology Echo: report reviewed Consult Discharge Plan - Plan Referrals: Hung Londono MD [Primary Care Provider] -
[2017-11-19] MEDS: Apixaban 5 MG TABLET PO SCH (21:27)
[2017-11-20] MEDS: Ampicillin/Sulbactam 1,500 MG in 0.9 % Sodium Chloride Mini Bag 100 ML IVPB SCH ×3 (00:52→11:49)
[2017-11-20 03:49] LABS: Basophils % 0.2 %; Hematocrit 36.7 % (37.5-50.1); Immature Granulocytes % 0.4 % (0-4); Immature Platelets 3.9 % (1.1-6.1); Lymphocytes # 2.2 K/mcL (0.6-4.6); Lymphocytes % 38.5 %; Mean Corpuscular HGB Conc 35.4 g/dL (31.6-35.5); Mean Corpuscular Hemoglobin 30.2 pg (28.0-33.3); Mean Corpuscular Volume 85.3 fL (83.0-100.0); Mean Platelet Volume 9.3 fL (9.4-12.4); Monocytes # 0.6 K/mcL (0.0-1.3); Monocytes % 10.1 %; Neutrophils # 2.9 K/mcL (1.6-8.9); Platelet Count 228 K/mcL (140-400); Red Cell Distribution Width 12.4 % (11.5-14.5); Segmented Neutrophils % 50.8 %
[2017-11-20] MEDS: Ipratropium Neb 0.5 MG NEBULIZER IH SCH ×3 (03:58→15:53)
[2017-11-20] MEDS: Levalbuterol Neb 1.25 MG/3 ML IH SCH ×3 (03:58→15:53)
[2017-11-20 04:23] LABS: BUN/Creatinine Ratio 24 (6-26); Blood Urea Nitrogen 15 mg/dL (6-20); Calcium 8.3 mg/dL (8.6-10.3); Carbon Dioxide 30 mEq/L (23-29); Chloride 101 mEq/L (98-107); Glucose 92 mg/dL (70-105); Osmolality,Calculated 278 (280-300); Potassium 3.6 mEq/L (3.5-5.1); Sodium 134 mEq/L (136-145); eGFR For African Americans > 60 (> 60); eGFR For Non-African Americans > 60 (> 60)
[2017-11-20] MEDS ORDERED: Diltiazem CD (24hr) 120 MG CAPSULE PO SCH (09:00)
[2017-11-20] MEDS ORDERED: Aspirin 81 MG TAB.CHEW PO SCH (09:00)
[2017-11-20] MEDS: Apixaban 5 MG TABLET PO SCH (09:47)
[2017-11-20] MEDS: Budesonide/Formoterol 160/4.5 MDI IH SCH (10:43)
[2017-11-20 11:39] VITALS: BP 151/94
--- NOTE | 2017-11-20 14:41 | Discharge Summary ---
<Ifeanyi Penny - Last Filed: 11/20/17 14:38> Date of Encounter: 11/20/17 Time of Encounter: 14:38 - Discharge Diagnosis (1) Sepsis Priority: Secondary Status: Resolved Qualifiers: Sepsis type: sepsis due to unspecified organism Qualified Code(s): A41.9 - Sepsis, unspecified organism (2) Influenza A Priority: Primary Status: Acute (3) Cavitary lesion of lung Priority: Secondary Status: Suspected (4) Tobacco abuse Priority: Secondary Status: Chronic (5) Leukopenia Priority: Secondary Status: Acute Qualifiers: Neutropenia type: unspecified Qualified Code(s): D70.9 - Neutropenia, unspecified (6) Hyponatremia Priority: Secondary Status: Resolved (7) Atrial flutter Priority: Secondary Status: Acute Qualifiers: Atrial flutter type: unspecified Qualified Code(s): I48.92 - Unspecified atrial flutter - Discharge Medications Prescriptions: Apixaban [Eliquis] 5 mg PO BID #60 tablet Diltiazem CD (24hr) [Cardizem CD] 120 mg PO DAILY 30 Days #30 cap.er.24h levoFLOXacin [Levofloxacin] 500 mg PO DAILY 10 Days #10 tablet Home Medications: Albuterol Neb [AccuNeb] 3 ml IH Q4-6H PRN 11/16/17 [History] Albuterol Sulfate [Ventolin Hfa] 18 gm IH Q4-6H PRN 11/16/17 [History] Budesonide/Formoterol 160/4.5 [Symbicort 160/4.5] 2 puff IH BID 11/16/17 [ History] Multivit-Min/FA/Lycopen/Lutein [Adults 50+ Multivitamin Tablet] 1 each PO DAILY 11/17/17 [History] Tiotropium Br/Olodaterol HCl [Stiolto Respimat Inhal [place]] 2 puff IH DAILY [History] Apixaban [Eliquis] 5 mg PO BID #60 tablet 11/20/17 [Rx] Diltiazem CD (24hr) [Cardizem CD] 120 mg PO DAILY 30 Days #30 cap.er.24h [Rx] levoFLOXacin [Levofloxacin] 500 mg PO DAILY 10 Days #10 tablet 11/20/17 [Rx] Allergies/Adverse Reactions: 3 Allergy/AdvReac Type Severity Reaction Status Date / Time No Known Allergies Allergy Verified 11/17/17 09:31 Procedures/tests Complete & Pending: Procedures Performed prior 72 hours Category Date Time Status CT chest w/o contrast [CT chest wo con] [CT] Routine Cat Scan 11/19/17 11:05 Completed EV echocardiogram Routine Y 11/17/17 13:47 Completed Date of admission: 11/16/17 22:31 Primary care physician: Hung Londono MD Consults: 11/18/17 10:48 Consult to Pulmonology [CONS] Routine Consulting Provider: [facility] Reason for Consult: newly found cavitory lesion in Left upper lobe Call Completed: Yes 11/19/17 10:33 Consult to Cardiology [CONS] Routine Comment: Consulting Provider: Cardiology [facility] Reason for Consult: new afib Call Completed: Yes 11/19/17 10:41 Consult to Physical Therapy [CONS] Routine Comment: Evaluate, develop and implement POC Reason for Consult: evaluation ambulation - Patient Status Disposition: Home, Self-Care Condition: Good Functional capacity at discharge: independent ambulation Overall status at discharge: patient is progressing back to baseline - Discharge Instructions Instructions: Atrial Flutter (DC), Atrial Fibrillation (DC), Acute Respiratory Distress Syndrome (DC), Sepsis (DC) Follow Up With: Hung Londono MD [Primary Care Provider] - Jacobo Domínguez DO [Partnered Physician] - - Diet and Activity Activity: increase activity as tolerated Diet: advance to your usual diet Hospital course: Mr. Price is a 57 year old male with P<MHx of COPD presented to [place] ED on with worsening dyspena and found to be septic. CT was taken in the ED and showed a [id number] cavitary lesion in the left apex. Previously diagnosed as bronchitis by PCP, was started on steroids and levaquin 2 weeks prior to presentation at ED. Patch was switch to Unasyn and started on tamiflu on hospitalization. Patient clinically improved and hemodynamically stable during hospitalization, patient was discharged on day 5 of admission. Patient to have follow up with PCP within 1 week. Patient was recommended smoking cessation. During ED, patient was found to be in afib w/ RVR. Cardiology was consulted, and he had an echo performed which showed LVEF 60%, and mild LV diastolic dysfunction. Patient auto-converted while in the ED. Cardiology recommended to start patient on cardizem 120 and eliquis. Patient will have outpatient follow up with cardiology. Time spent discussing smoking cessation with patient: more than 10 minutes - Time Spent with Patient Total time spent providing and/or coordinating discharge services: Greater than 30 minutes - Constitutional Vitals: Temp Pulse Resp BP Pulse Ox 98.1 F 73 15 151/94 97 11/20/17 11:34 11/20/17 11:34 11/20/17 11:34 11/20/17 11:34 11/20/17 11:34 General appearance: Present: cooperative, mild distress, A&O X 3, answers questions appropriately - Respiratory Respiratory exam: Present: CTAB. Absent: accessory muscle use, rales, rhonchi, wheezes - Cardiovascular Cardiovascular exam: Present: RRR, +S1, +S2. Absent: diastolic murmur, gallop, rubs, systolic murmur - GI/Abdominal GI/Abdominal exam: Present: normal bowel sounds, soft, no peritoneal signs. Absent: distended, tenderness - Psychiatric Psychiatric exam: Present: normal affect, normal mood <Moy Dunn - Last Filed: 11/20/17 19:25> Date of Encounter: 11/20/17 - Discharge Diagnosis (1) Acute respiratory failure with hypoxia Priority: Primary Status: Resolved (2) Influenza A Status: Acute (3) Sepsis Status: Resolved Qualifiers: Sepsis type: sepsis due to unspecified organism Qualified Code(s): A41.9 - Sepsis, unspecified organism (4) Atrial fibrillation Priority: Secondary Status: Chronic Qualifiers: Atrial fibrillation type: paroxysmal Qualified Code(s): I48.0 - Paroxysmal atrial fibrillation (5) Tobacco abuse Status: Chronic (6) Cavitary lesion of lung Status: Suspected (7) Hyponatremia Status: Resolved (8) Chronic respiratory failure with hypoxia Priority: Secondary Status: Chronic Procedures/tests Complete & Pending: Procedures Performed prior 72 hours Category Date Time Status CT chest w/o contrast [CT chest wo con] [CT] Routine Cat Scan 11/19/17 11:05 Completed Date of admission: 11/16/17 22:31 Primary care physician: Hung Londono MD Consults: 11/18/17 10:48 Consult to Pulmonology [CONS] Routine Consulting Provider: [facility] Reason for Consult: newly found cavitory lesion in Left upper lobe Call Completed: Yes 11/19/17 10:33 Consult to Cardiology [CONS] Routine Comment: Consulting Provider: Cardiology Jimena Reason for Consult: new afib Call Completed: Yes 11/19/17 10:41 Consult to Physical Therapy [CONS] Routine Comment: Evaluate, develop and implement POC Reason for Consult: evaluation ambulation Hospital course: Mr. Price is a 57 year old male - Time Spent with Patient Total time spent providing and/or coordinating discharge services: 39min - Constitutional Vitals: Temp Pulse Resp BP Pulse Ox 98.1 F 73 18 151/94 97 11/20/17 11:34 11/20/17 11:34 11/20/17 15:53 11/20/17 11:34 11/20/17 15:53 - Attending Attestation I examined this patient and my medical decision-making was reviewed with the Resident Physician on 11/20/17. I agree with the documented findings, disposition and treatment plan as described except to the extent set forth below. Mr Price has been admitted for sepsis related to influenza and pneumonia. He is now afebrile and feels nearly at baseline. He feels ready for discharge home. Exm Alert. Comfortable Mucus membranes dry Heart reg Diminished lung sounds Plan D/C home today Eliquis for parox a fib
[2017-11-21 16:22] LABS: QuantiFERON Mitogen minus NIL 8.52 IU/mL
[2017-11-24 14:31] LABS: QuantiFERON NIL 0.09 IU/mL; QuantiFERON-TB Gold In-Tube NEGATIVE (Negative)
== END 2017-11-20 17:35 | disposition home or self-care (01) | DRG 871 ==
LOC: 2NENU → SUATTDRO 22:31
PROVIDERS: ADMIT Internal Medicine; ATTEND Internal Medicine